=== PATIENT | male | born 1955 | race Caucasian/White ===

== ENCOUNTER → 2017-02-21 | Outpatient (CLI) | payer SELFPAY ==
[2017-02-21 14:34] LABS: BASOPHILS % (AUTO) 0 % (0-10); EOSINOPHILS # (AUTO) 0.2 10^3/uL (0.0-0.3); EOSINOPHILS % (AUTO) 2 % (0-10); HEMATOCRIT 33 % (40-54); HEMOGLOBIN 10.6 G/DL (13.3-17.7); LYMPHOCYTES # (AUTO) 1.1 X 10^3 (1.0-4.0); LYMPHOCYTES % (AUTO) 9 % (12-44); MEAN CORPUSCULAR HEMOGLOBIN 26 PG (25-34); MEAN CORPUSCULAR HGB CONC 32 G/DL (32-36); MEAN CORPUSCULAR VOLUME 79 FL (80-99); MEAN PLATELET VOLUME 9.1 FL (7.4-10.4); MONOCYTES # (AUTO) 0.8 X 10^3 (0.0-1.0); MONOCYTES % (AUTO) 6 % (0-12); NEUTROPHILS # (AUTO) 10.3 X 10^3 (1.8-7.8); NEUTROPHILS % (AUTO) 84 % (42-75); PLATELET COUNT 336 10^3/uL (130-400); RED BLOOD COUNT 4.14 10^6/uL (4.35-5.85); RED CELL DISTRIBUTION WIDTH 15.4 % (10.0-14.5); WHITE BLOOD COUNT 12.3 10^3/uL (4.3-11.0)
[2017-02-21 14:52] LABS: ALBUMIN 3.7 GM/DL (3.2-4.5); BILIRUBIN,TOTAL 0.3 MG/DL (0.1-1.0); CALCIUM 9.5 MG/DL (8.5-10.1); CREATININE SERUM 1.28 MG/DL (0.60-1.30); POTASSIUM 4.5 MMOL/L (3.6-5.0); TOTAL PROTEIN 7.3 GM/DL (6.4-8.2)
--- NOTE | 2017-02-21 16:29 | Diagnostic Imaging Report ---
PROCEDURE: CT chest with contrast only. TECHNIQUE: Multiple contiguous axial images were obtained through the chest after administration of intravenous contrast. INDICATION: Right upper lobe consolidation seen on an outside chest x-ray. Cough and shortness of breath. COMPARISON: None available. FINDINGS: LUNGS AND AIRWAY: A right upper lobe invasive lung mass is located along the mediastinum. This has maximal dimensions of 6.8 x 7.0 cm and directly invades the mediastinum and extends into the subcarinal space and along the right paratracheal location. This mass completely encases the right upper lobe bronchus. The anterior aspect of the mass probably abuts the pleura and may invade the chest wall at the level of the first rib. 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 There are multiple satellite metastases within the right lung which include a 1.5 cm nodule in the right middle lobe and a 2.9 x 2.4 cm nodule in the right lower lobe. No contralateral pulmonary nodule or mass. PLEURA: Trace right pleural effusion. No pneumothorax. HEART AND MEDIASTINUM: Right hilar lymphadenopathy measures 2.0 x 2.1 cm. No left hilar lymphadenopathy. No supraclavicular or axillary lymphadenopathy. There is a small to moderate-sized pericardial effusion present measuring 7 cm which could be malignant in nature. There are no features of cardiac tamponade. The heart is normal in size. A small hiatus hernia is present. Normal caliber thoracic aorta. UPPER ABDOMEN: There is a likely 2.5 x 1.8 cm left adrenal nodule seen on the most inferior image of the exam. MUSCULOSKELETAL: No focal blastic or lytic osseous lesion. IMPRESSION: 1. Large right upper lobe lung mass measuring up to 7 cm and directly invading the mediastinum and likely right chest wall. This is most compatible with a primary lung cancer. This mass encases and occludes the right upper lobe bronchus. 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 2. Multiple satellite metastatic nodules within the right middle and lower lobes are present. 3. Right hilar lymphadenopathy. No contralateral left hilar lymphadenopathy. 4. Probable metastatic focus in the left adrenal gland is seen on the most inferior image. A CT of the abdomen and pelvis will be required for full staging. 5. A small to moderate pericardial effusion is likely malignant in nature. Report was faxed to Mariama Walls APRN at 4:27 p.m., by feng (for ALEKSEY). Dictated by: Dictated on workstation # [id number]
== END ==
LOC: RAD 14:13
PROVIDERS: ATTEND Nurse Practitioner Family
DX: C34.31 Malignant neoplasm of lower lobe, right bronchus or lung (principal); C34.2 Malignant neoplasm of middle lobe, bronchus or lung; C80.0 Disseminated malignant neoplasm, unspecified; I31.3 Pericardial effusion (noninflammatory); R59.1 Generalized enlarged lymph nodes
CPT/HCPCS: 36415; 71260; 80053; 85025

== ENCOUNTER 2017-02-27 14:16 | Inpatient (IN) | payer SELFPAY ==
[~2017-02-27] VITALS: Ht 182.9 cm; Wt 93.2 kg
[2017-02-27 14:33] LABS: BASOPHILS % (AUTO) 0 % (0-10); EOSINOPHILS % (AUTO) 0 % (0-10); HEMATOCRIT 33 % (40-54); HEMOGLOBIN 10.7 G/DL (13.3-17.7); LYMPHOCYTES # (AUTO) 0.9 X 10^3 (1.0-4.0); LYMPHOCYTES % (AUTO) 5 % (12-44); MEAN CORPUSCULAR HEMOGLOBIN 25 PG (25-34); MEAN CORPUSCULAR HGB CONC 33 G/DL (32-36); MEAN CORPUSCULAR VOLUME 77 FL (80-99); MONOCYTES # (AUTO) 0.8 X 10^3 (0.0-1.0); MONOCYTES % (AUTO) 5 % (0-12); NEUTROPHILS # (AUTO) 15.3 X 10^3 (1.8-7.8); NEUTROPHILS % (AUTO) 90 % (42-75); PLATELET COUNT 335 10^3/uL (130-400); RED BLOOD COUNT 4.23 10^6/uL (4.35-5.85); RED CELL DISTRIBUTION WIDTH 15.8 % (10.0-14.5)
[2017-02-27 14:48] LABS: INR 1.5 (0.8-1.4); PROTHROMBIN TIME PATIENT 18.4 SEC (12.2-14.7)
[2017-02-27 14:59] LABS: BAND NEUTROPHILS 2 %; BASOPHILS % (MANUAL) 0 %; EOSINOPHILS % (MANUAL) 0 %; LYMPHOCYTES % (MANUAL) 3 %; MONOCYTES % (MANUAL) 3 %; NEUTROPHILS % (MANUAL) 86 %; NUCLEATED RED BLOOD CELLS 1; REACTIVE LYMPHOCYTES 6 %
[2017-02-27 15:00] LABS: ALANINE AMINOTRANSFERASE 757 U/L (0-55); ALBUMIN 3.6 GM/DL (3.2-4.5); ALKALINE PHOSPHATASE 275 U/L (40-136); AMYLASE 8 U/L (25-125); ANISOCYTOSIS MODERATE; BILIRUBIN,TOTAL 0.6 MG/DL (0.1-1.0); BUN/CREATININE RATIO 34; CALCIUM 9.6 MG/DL (8.5-10.1); CARBON DIOXIDE 23 MMOL/L (21-32); CHLORIDE 98 MMOL/L (98-107); CREATINE KINASE 75 U/L (30-200); CREATININE SERUM 1.52 MG/DL (0.60-1.30); ELLIPT/OVALOCYTES SLIGHT; GFR ESTIMATED 47; GLUCOSE 145 MG/DL (70-105); HYPOCHROMASIA SLIGHT; LIPASE 15 U/L (8-78); POIKILOCYTOSIS SLIGHT; POTASSIUM 5.2 MMOL/L (3.6-5.0); SODIUM 132 MMOL/L (135-145); TARGET CELLS SLIGHT; TOTAL PROTEIN 6.8 GM/DL (6.4-8.2); TOXIC GRANULATION/VACUOLAZATIO 1+
[2017-02-27 15:01] LABS: ACANTHOCYTES SLIGHT
[2017-02-27 15:09] LABS: CREATINE KINASE MB 5.1 NG/ML (<6.6)
--- NOTE | 2017-02-27 15:18 | Diagnostic Imaging Report ---
INDICATION: Lung mass. EXAMINATION: Portable chest at 3:07 PM. FINDINGS: There is a 7 cm density in the medial aspect of the right upper chest. There is a 2.5 cm density at the right lateral lung base. The left lung is clear. The heart size and pulmonary vascularity are normal. IMPRESSION: There are two round areas of consolidation in the right lung, suspicious for neoplasm. These are unchanged from a CT dated 02/21/2017. Dictated by: Dictated on workstation # [id number]
--- NOTE | 2017-02-27 18:55 | ED General ---
General Chief Complaint: Respiratory Problems Stated Complaint: NEW DX LUNG CANCER,HYPOXIA,LEG EDEMA Nursing Triage Note: PT CO OF SOA, AT REST PT AMBULATES TO ROOM 4 W SOA, PT HAS SWELLING NOTED IN EXT AND NEWLY DX MASS IN LUNG. FAMILY FROM OUT OF TOWN HAS COME IN AND BROUGHT PT TO ED FOR EVALUATION Nursing Sepsis Screen: No Definite Risk Source of Information: Patient, Family (SISTER) History of Present Illness Time Seen by Provider: 14:23 Initial Comments PT ARRIVES VIA POV FROM HOME C/O RIGHT LOWER CHEST PAIN OFF AND ON FOR A ? FEW DAYS ??--PT NOT SURE HOW LONG PT STATES "FEELS LIKE A HORSE KICKED ME" BUT DOES NOT HAVE ANY PAIN AT THIS TIME PAIN IS MOSTLY WITH EXERTION PT HAS HAD ONGOING AND INCREASING SHORTNESS OF BREATH, ESPECIALLY WITH EXERTION FOR THE LAST 6-7 MONTHS, BUT MUCH WORSE THE LAST 3 WEEKS,BUT DOES NOT FEEL SHORT OF BREATH AT THIS TIME HAS HAD INCREASED MINIMALLY PRODUCTIVE COUGH AND CONGESTION FOR THE LAST 2-3 WEEKS NO FEVER/SWEATS/CHILLS SEEN AT [facility] LAST WEEK AND OUTPATIENT CT SCAN WAS DONE02/21/17 , HAD FOLLOW UP VISIT ON SATURDAY WITH DR. ALVA ON Saturday02/25/17 AND WAS TOLD HE HAD A LUNG MASS. NO OTHER TESTS OR REFERRALS HAVE BEEN MADE. NO RX'S GIVEN. PT HAS HISTORY OF HEAD/NECK CANCER IN 2008 AND WAS TREATED WITH RADICAL NECK DISSECTION, CHEMO AND RADIATION. PT QUIT SMOKING IN 2008. PT HAS NOT BEEN DX WITH COPD AND DOES NOT WEAR HOME O2 OR USE INHALERS/ NEBULIZERS PCP: [facility] Allergies and Home Medications Allergies Coded Allergies: No Known Drug Allergies (Unverified , 02/27/17) Home Medications No Active Prescriptions or Reported Meds Past Vfaesuv-Nlmdfz-Fkimtk Hx Patient Social History Alcohol Use: Denies Use Recreational Drug Use: No Smoking Status: Former Smoker Recent Foreign Travel: No Contact w/Someone Who Travel: No Recent Infectious Disease Expo: No Recent Hopitalizations: No Physical Abuse: No Sexual Abuse: No Seasonal Allergies Seasonal Allergies: No Surgeries History of Surgeries: Yes (THYROID CA, L MOD RAD THROAT SURGERY, TEETH PULLED) Respiratory History of Respiratory Disorde: No Cardiovascular History of Cardiac Disorders: No Neurological History of Neurological Disord: No Genitourinary History of Genitourinary Disor: No Gastrointestinal History of Gastrointestinal Di: No Musculoskeletal History of Musculoskeletal Dis: No Endocrine History of Endocrine Disorders: No HEENT History of HEENT Disorders: No Cancer History of Cancer: Yes (THROAT CA) Type of Tx Receive: Chemotherapy, Radiation, Surgical Intervention Psychosocial History of Psychiatric Problem: No Suicide Risk Score: 0 Integumentary History of Skin or Integumenta: No Blood Transfusions History of Blood Disorders: No Adverse Reaction to a Blood Tr: No Physical Exam Vital Signs Vital Sign - Last 12Hours 02/27/17 14:16 Temp 99.1 Pulse 83 Resp 18 B/P (MAP) 127/95 (106) Pulse Ox 95 O2 Delivery Nasal Cannula O2 Flow Rate 2.00 Capillary Refill : Less Than 3 Seconds Progress/Results/Core Measures Suspected Sepsis Recent Fever Within 48 Hours: No Infection Criteria Present: None New/Unexplained Altered Menta: No Sepsis Screen: No Definite Risk Sepsis Diagnosis: SIRS Temperature:99.1 Pulse: 83 Respiratory Rate: 18 Laboratory Tests 02/27/17 14:25: White Blood Count 17.0H 02/28/17 04:55: White Blood Count 16.0H Blood Pressure 127 /95 Mean: 106 Laboratory Tests 02/27/17 14:25: Creatinine 1.52H, INR Comment 1.5H, Platelet Count 335, Total Bilirubin 0.6 02/28/17 04:55: Creatinine 1.38H, Platelet Count 290, Total Bilirubin 0.6 Results/Orders Lab Results Laboratory Tests Test 02/27/17 14:25 02/28/17 04:55 Range/Units White Blood Count 17.0 H 16.0 H 4.3-11.0 10^3/uL Red Blood Count 4.23 L 4.15 L 4.35-5.85 10^6/uL Hemoglobin 10.7 L 10.6 L 13.3-17.7 G/DL Hematocrit 33 L 32 L 40-54 % Mean Corpuscular Volume 77 L 77 L 80-99 FL Mean Corpuscular Hemoglobin 25 26 25-34 PG Mean Corpuscular Hemoglobin Concent 33 33 32-36 G/DL Red Cell Distribution Width 15.8 H 15.8 H 10.0-14.5 % Platelet Count 335 290 130-400 10^3/uL Mean Platelet Volume 10.0 10.1 7.4-10.4 FL Neutrophils (%) (Auto) 90 H 85 H 42-75 % Lymphocytes (%) (Auto) 5 L 9 L 12-44 % Monocytes (%) (Auto) 5 6 0-12 % Eosinophils (%) (Auto) 0 0 0-10 % Basophils (%) (Auto) 0 0 0-10 % Neutrophils # (Auto) 15.3 H 13.6 H 1.8-7.8 X 10^3 Lymphocytes # (Auto) 0.9 L 1.4 1.0-4.0 X 10^3 Monocytes # (Auto) 0.8 1.0 0.0-1.0 X 10^3 Eosinophils # (Auto) 0.0 0.1 0.0-0.3 10^3/uL Basophils # (Auto) 0.0 0.0 0.0-0.1 10^3/uL Neutrophils % (Manual) 86 % Lymphocytes % (Manual) 3 % Monocytes % (Manual) 3 % Eosinophils % (Manual) 0 % Basophils % (Manual) 0 % Metamyelocytes % % Band Neutrophils 2 % Nucleated Red Blood Cells 1 Reactive Lymphocytes 6 % Toxic Granulation 1+ Hypochromasia SLIGHT Poikilocytosis SLIGHT Anisocytosis MODERATE Target Cells SLIGHT Elliptocytes SLIGHT Acanthocytes SLIGHT Prothrombin Time 18.4 H 12.2-14.7 SEC INR Comment 1.5 H 0.8-1.4 Activated Partial Thromboplast Time 35 24-35 SEC Sodium Level 132 L 132 L 135-145 MMOL/L Potassium Level 5.2 H 5.3 H 3.6-5.0 MMOL/L Chloride Level 98 100 98-107 MMOL/L Carbon Dioxide Level 23 19 L 21-32 MMOL/L Anion Gap 11 13 5-14 MMOL/L Blood Urea Nitrogen 52 H 56 H 7-18 MG/DL Creatinine 1.52 H 1.38 H 0.60-1.30 MG/DL Estimat Glomerular Filtration Rate 47 52 BUN/Creatinine Ratio 34 41 Glucose Level 145 H 109 H 70-105 MG/DL Calcium Level 9.6 9.7 8.5-10.1 MG/DL Total Bilirubin 0.6 0.6 0.1-1.0 MG/DL Aspartate Amino Transf (AST/SGOT) 455 H 1088 #H 5-34 U/L Alanine Aminotransferase (ALT/SGPT) 757 H 1118 #H 0-55 U/L Alkaline Phosphatase 275 H 306 H 40-136 U/L Total Creatine Kinase 75 30-200 U/L Creatine Kinase MB 5.1 <6.6 NG/ML Troponin I < 0.30 <0.30 NG/ML B-Type Natriuretic Peptide 73.0 <100.0 PG/ML Total Protein 6.8 6.6 6.4-8.2 GM/DL Albumin 3.6 3.4 3.2-4.5 GM/DL Amylase Level 8 L 25-125 U/L Lipase 15 8-78 U/L Magnesium Level 2.1 1.8-2.4 MG/DL My Orders Orders - PATTI HERRERA DO Amylase (02/27/17 14:23) Cbc With Automated Diff (02/27/17 14:23) Comprehensive Metabolic Panel (02/27/17 14:23) Creatine Kinase (02/27/17 14:23) Creatine Kinase Mb (02/27/17 14:23) Lipase (02/27/17 14:23) Partial Thromboplastin Time (02/27/17 14:23) Protime With Inr (02/27/17 14:23) Troponin I (02/27/17 14:23) Chest 1 View, Ap/Pa Only (02/27/17 14:23) O2 (02/27/17 14:23) Ekg Tracing (02/27/17 14:23) BNP (02/27/17 14:23) Monitor-Rhythm Ecg Trace Only (02/27/17 14:23) Manual Differential (02/27/17 14:25) Heart Healthy (02/28/17 Breakfast) Heart Healthy (02/27/17 Dinner) Vital Signs/I&O Vital Sign - Last 12Hours 02/28/17 02/28/17 02/28/17 02/28/17 09:56 10:00 11:00 12:00 Temp 96.7 Pulse 87 90 90 Resp 30 31 28 B/P (MAP) 120/100 (107) 115/80 (92) 133/91 (105) Pulse Ox 96 98 97 O2 Delivery Nasal Cannula Nasal Cannula Nasal Cannula O2 Flow Rate 2.00 2.00 2.00 02/28/17 02/28/17 02/28/17 02/28/17 12:15 12:15 13:00 13:00 Temp 97.0 Pulse 77 77 Resp 13 B/P (MAP) 115/86 (96) Pulse Ox 95 O2 Delivery Nasal Cannula Nasal Cannula O2 Flow Rate 2.00 2.00 02/28/17 02/28/17 02/28/17 02/28/17 14:00 15:00 15:05 16:00 Pulse 77 80 80 Resp 21 31 31 B/P (MAP) 106/77 (87) 107/79 (88) 113/94 (100) Pulse Ox 98 97 96 O2 Delivery Nasal Cannula Nasal Cannula Nasal Cannula Nasal Cannula O2 Flow Rate 2.00 2.00 2.00 2.00 02/28/17 02/28/17 02/28/17 02/28/17 16:20 16:20 17:00 18:00 Temp 97.0 Pulse 82 85 Resp 32 32 B/P (MAP) 121/102 (108) 114/41 (65) Pulse Ox 96 97 O2 Delivery Nasal Cannula Nasal Cannula Nasal Cannula O2 Flow Rate 2.00 2.00 2.00 02/28/17 02/28/17 02/28/17 02/28/17 19:00 19:00 20:00 20:46 Pulse 79 79 81 Resp 24 26 B/P (MAP) 115/96 (102) 127/95 (106) Pulse Ox 99 98 O2 Delivery Nasal Cannula Nasal Cannula Nasal Cannula O2 Flow Rate 2.00 2.00 2.00 Capillary Refill : Less Than 3 Seconds Blood Pressure Mean: 106 Progress Note : Progress Note PT HAD NO SYMPTOMS DURING ER STAY, WHILE RESTING ON ER CART AND O2 AT 2L/NC O2 SATS REMAINED IN MID 90'S. NO DETERIORATION IN PT'S CONDITION DURING ER STAY Departure Communication (Admissions) Progress Notes 1545--SPOKE WITH DR. ALEGRIA, ACCEPTS PT FOR ADMIT. WILL CONSULT DR. CHERRY AND ONCOLOGY 1547--MESSAGE LEFT ON DR. CHERRY'S CELL PHONE 1550--SPOKE WITH DR. CHERRY AND INFORMED OF CONSULT. 1558--PAGING DR. TOMLINSON FOR ONCOLOGY CONSULT. NO RETURN CALL Impression Impression: Primary Impression: NEW DX METASTATIC LUNG CANCER Additional Impressions: Chest wall pain Hypoxia Dyspnea on exertion Bilateral leg edema Disposition: ADMITTED INPATIENT Condition: Stable Admissions Decision to Admit Reason: Admit from ER (General) Decision to Admit/Date: Feb 27, 2017 Time/Decision to Admit Time: 15:45 Departure-Patient Inst. Referrals: [facility] (PCP/Family) Primary Care Physician Scripts No Active Prescriptions or Reported Meds PATTI HERRERA DO Feb 27, 2017 18:55
[2017-02-27 20:09] VITALS: BP 122/94
[2017-02-27] MEDS ORDERED: CATHETER FLUSH 10 ML SYR IV PRN (20:15)
[2017-02-27 21:00] VITALS: BP 121/84
[2017-02-27] MEDS: CATHETER FLUSH 10 ML SYR IV SCH (21:33)
[2017-02-27 22:00] VITALS: BP 125/95
[2017-02-27 23:00] VITALS: BP 141/101
[2017-02-28] VITALS (20 sets, daily range): BP systolic 94–136; BP diastolic 41–102
[2017-02-28 05:18] LABS: BASOPHILS % (AUTO) 0 % (0-10); EOSINOPHILS # (AUTO) 0.1 10^3/uL (0.0-0.3); EOSINOPHILS % (AUTO) 0 % (0-10); HEMATOCRIT 32 % (40-54); HEMOGLOBIN 10.6 G/DL (13.3-17.7); LYMPHOCYTES # (AUTO) 1.4 X 10^3 (1.0-4.0); LYMPHOCYTES % (AUTO) 9 % (12-44); MEAN CORPUSCULAR HEMOGLOBIN 26 PG (25-34); MEAN CORPUSCULAR HGB CONC 33 G/DL (32-36); MEAN CORPUSCULAR VOLUME 77 FL (80-99); MEAN PLATELET VOLUME 10.1 FL (7.4-10.4); MONOCYTES % (AUTO) 6 % (0-12); NEUTROPHILS # (AUTO) 13.6 X 10^3 (1.8-7.8); NEUTROPHILS % (AUTO) 85 % (42-75); PLATELET COUNT 290 10^3/uL (130-400); RED BLOOD COUNT 4.15 10^6/uL (4.35-5.85); RED CELL DISTRIBUTION WIDTH 15.8 % (10.0-14.5)
[2017-02-28 05:56] LABS: ALBUMIN 3.4 GM/DL (3.2-4.5); BILIRUBIN,TOTAL 0.6 MG/DL (0.1-1.0); CALCIUM 9.7 MG/DL (8.5-10.1); CREATININE SERUM 1.38 MG/DL (0.60-1.30); POTASSIUM 5.3 MMOL/L (3.6-5.0); TOTAL PROTEIN 6.6 GM/DL (6.4-8.2)
[2017-02-28] MEDS: CATHETER FLUSH 10 ML SYR IV SCH ×3 (06:07→21:17)
[2017-02-28] MEDS ORDERED: INFLUENZA TRIvalent 2017-2018 0.5 ML/45 MCG SYR IM ONE (07:00)
--- NOTE | 2017-02-28 07:44 | Pulmonary Consultation ---
History of Present Illness History of Present Illness Date of Consultation 02/28/17 07:39 Time Seen by Provider: 07:55 Date of Admission Allergies and Home Medications Allergies Coded Allergies: No Known Drug Allergies (Unverified , 02/27/17) Past Witqgiy-Qzqqqy-Syibpy Hx Patient Social History Alcohol Use: Rarely Uses Number of Drinks Today: 0 Recreational Drug Use: No Smoking Status: Former Smoker Former Smoker, Quit: Feb 28, 2008 Recent Foreign Travel: No Contact w/Someone Who Travel: No Recent Infectious Disease Expo: No Recent Hopitalizations: No Physical Abuse: No Sexual Abuse: No Seasonal Allergies Seasonal Allergies: No Surgeries History of Surgeries: Yes (THYROID CA, L MOD RAD THROAT SURGERY, TEETH PULLED) Respiratory History of Respiratory Disorde: No Currently Using CPAP: No Currently Using BIPAP: No Cardiovascular History of Cardiac Disorders: No Neurological History of Neurological Disord: Yes Genitourinary History of Genitourinary Disor: Yes (DIFFICULTY URINATING AT TIMES) Gastrointestinal History of Gastrointestinal Di: Yes (PAST HISTORY OF CHRONIC STOMACH PAIN (NO DX)) Musculoskeletal History of Musculoskeletal Dis: No Endocrine History of Endocrine Disorders: No HEENT History of HEENT Disorders: No Cancer History of Cancer: Yes (THROAT CA) Did You Recieve Any Treatments: Yes Type of Tx Receive: Chemotherapy, Radiation, Surgical Intervention Psychosocial History of Psychiatric Problem: Yes ("PSYCHOTIC FITS" OCCASSIONALLY IS "OUT OF CONTROL") Suicide Risk Score: 0 Integumentary History of Skin or Integumenta: No Blood Transfusions History of Blood Disorders: No Adverse Reaction to a Blood Tr: No Family Medical History Family Medial History: Diabetes mellitus 19 MOTHER FH: prostate cancer 19 FATHER Hypertension 19 MOTHER Review of Systems Time Seen by Provider: 07:54 Constitutional: Sweats, Weakness, Malaise, No: Fever, Chills, Other Eyes: No: Pain, Vision change, Conjunctivae inflammation, Eyelid inflammation, Other, Redness ENT: No: Ear pain, Ear discharge, Nose pain, Nose discharge, Nose congestion, Mouth pain, Mouth swelling, Throat pain, Throat swelling, Other Respiratory: Shortness of breath, SOB with excertion, Wheezing, No: Hemoptysis Cardiovascular: Palpitations, Paroxysmal Noc. Dyspnea, Edema, Lt Headedness, No : Chest Pain, Orthopnea, Other Neurological: Weakness, Numbness Exam Exam Vital Signs Date Time Temp Pulse Resp B/P (MAP) Pulse Ox O2 Delivery O2 Flow Rate FiO2 02/28/17 06:00 77 23 94/69 (77) 100 02/28/17 05:00 82 14 99 02/28/17 04:00 97.1 02/28/17 04:00 82 22 100/82 (88) 99 Nasal Cannula 2.00 02/28/17 04:00 97 Nasal Cannula 2.00 02/28/17 03:00 76 20 99/76 (84) 99 Nasal Cannula 2.00 02/28/17 02:00 85 28 115/82 (93) 98 Nasal Cannula 2.00 02/28/17 01:00 82 02/28/17 01:00 82 25 136/87 (103) 98 Nasal Cannula 2.00 02/28/17 00:00 97.5 02/28/17 00:00 98 Nasal Cannula 2.00 02/28/17 00:00 81 26 129/78 (95) 100 Nasal Cannula 2.00 02/27/17 23:00 87 24 141/101 (114) 99 Nasal Cannula 2.00 02/27/17 22:00 84 21 125/95 (105) 99 Nasal Cannula 2.00 02/27/17 21:00 98 Nasal Cannula 2.00 02/27/17 21:00 85 31 121/84 (96) 98 Nasal Cannula 2.00 02/27/17 20:39 88 02/27/17 20:09 98.1 95 20 122/94 (103) 99 Nasal Cannula 2.00 02/27/17 19:46 99 Nasal Cannula 2.00 02/27/17 19:15 78 18 95 Nasal Cannula 2.00 02/27/17 14:16 99.1 83 18 127/95 (106) 96 02/27/17 14:16 95 Nasal Cannula 2.00 I & O 02/28/17 07:00 Intake Total 450 ml Output Total 900 ml Balance -450 ml General Appearance: Anxious, Mild Distress HEENT: TMs Normal, Normal ENT Inspection Neck: Non Tender, Supple, JVD Respiratory: No Accessory Muscle Use, No Respiratory Distress, Decreased Breath Sounds Capillary Refill: Less Than 3 Seconds Gastrointestinal: non tender, soft, no organomegaly, no pulsatile mass Neurologic/Psychiatric: Alert, Oriented x3 Skin: Normal Color, Cool, Pallor Lymphatic: No Adenopathy Results Lab Laboratory Tests 02/27/17 14:25 02/28/17 04:55 Assessment/Plan Assessment/Plan RUL large lung mass -Will plan for bronchoscopy tomorrow morning Pneumonia -start Zosyn -IVF 100cc/hr COPDAE with hypoxia -oxygen -Solumedrol -SVNs Pericardial effusion - probably malignant -check echocardiogram Dehydration -start IVF Metabolic acidosis -IVF and monitor Elevated LFTs -Check US RUQ -D/C doxy -Monitor close -Pt has only been taking doxy at home. no pain meds and no Tylenol RADHA -IVF Will leave in as ICU step down and plan for bronchoscopy in AM. Pt will probably need home oxygen upon discharge. 255 Clinical Quality Measures DVT/VTE Risk/Contraindication: Risk Factor Score Per Nursin RFS Level Per Nursing on Admit: 3=High NELLIE CHERRY DO Feb 28, 2017 07:44
[2017-02-28] MEDS ORDERED: PIPERACILLIN/TAZOBACTAM 4.5 GM/NS 100 ML IV NR ×2 (08:00)
[2017-02-28] MEDS ORDERED: RT-ALBUTEROL/IPRATROPIUM 3 ML (DUONEB) VIAL INH PRN (08:00)
[2017-02-28] MEDS: RT-ALBUTEROL/IPRATROPIUM 3 ML (DUONEB) VIAL INH SCH ×4 (09:00→20:46)
--- NOTE | 2017-02-28 09:14 | Pulmonary Progress Note ---
Standard Progress Note Progress Notes Time Seen by Provider: 08:48 Called to patients room by psychology technician secondary to finding of a large pericardial effusion causing tamponade. SBP has been stable around 114/90. I discussed patients case with cardiology and patients sister who is a CHAIR MAKER. Family would like pt to be transferred to [facility] for CV surgery. Assessment & Plan Large pericardial effusion -Will attempt to arrange transfer to [facility] RUL large lung mass -Cancel bronch for now Pneumonia -start Zosyn -IVF 100cc/hr COPDAE with hypoxia -oxygen -Solumedrol -SVNs Pericardial large effusion - probably malignant Dehydration -start IVF Metabolic acidosis -IVF and monitor Elevated LFTs -Check US RUQ -D/C doxy -Monitor close -Pt has only been taking doxy at home. no pain meds and no Tylenol RADHA -IVF I have attempted to arrange transfer to [facility] and [place] however both hospitals are on diversion. [facility] called and they are suppose to call me back when a finance business manager is available. I called pt's sister back and updated her on current situation. I have also discussed with Dr. Michael who wants patient transferred. 120min ICU time since seeing patient this morning. spent with patient and medical team trying to transfer patient. NELLIE CHERRY DO Feb 28, 2017 09:14
[2017-02-28] MEDS: methylPREDNISolone 40 MG/ML (Solu-MEDROL) VIAL IV SCH ×3 (09:43→20:20)
[2017-02-28] MEDS: NS IV 1000 ML 1,000 ML IV SCH ×3 (09:46→21:17)
--- NOTE | 2017-02-28 10:46 | Diagnostic Imaging Report ---
INDICATION: New diagnosis of lung malignancy. TECHNIQUE: Multiple real-time ramirez scale sonographic images of the abdomen. CORRELATION STUDY: None FINDINGS: LIVER: Slight heterogeneous echotexture throughout the liver parenchyma. No definitive focal lesion. Very questionable nodular contour. Liver is enlarged at 21 cm. Main portal vein patent. GALLBLADDER: There is marked abnormal gallbladder wall thickening and edema measuring at least 9 mm. No definitive shadowing gallstones. COMMON BILE DUCT: Not well visualized, but no suggestion for significant ductal dilatation. PANCREAS: Limited in visualization. The visualized portions appearing unremarkable. SPLEEN: Unremarkable. ABDOMINAL AORTA: Proximal and mid aspect not visualized. Distally at 2 cm. INFERIOR VENA CAVA: Limited in visualization. RIGHT KIDNEY: 11.6 cm. Unremarkable. LEFT KIDNEY: 12.3 cm. Unremarkable. OTHER: There is noted upper abdominal ascites particularly around the spleen. Additionally, there is presence of bilateral pleural effusions. IMPRESSION: 1. Enlarged liver with heterogeneous and somewhat nodular echotexture. The possibility of underlying liver disease not excluded. 2. Prominent abnormal gallbladder wall thickening and edema without findings to suggest gallstone. This finding is nonspecific. Perhaps attributed to underlying liver disease. Changes of chronic acalculous cholecystitis is not excluded. Biliary tree cannot be visualized. 3. Presence of upper abdominal ascites. 4. Bilateral pleural effusions. Dictated by: Dictated on workstation # [id number]
[2017-02-28] MEDS ORDERED: TAZOBACTAM IV SCH ×2 (14:00)
[2017-02-28] MEDS ORDERED: DEXTROSE IV SCH ×2 (14:00)
[2017-02-28] MEDS ORDERED: PIPERACILLIN IV SCH ×2 (14:00)
--- NOTE | 2017-02-28 14:06 | History & Physicial (CHS) ---
HPI History of Present Illness: 62 yo M with recent lung Ca Dx on Saturday that presented to ER with increasing shortness of breath and exercise intolerance. States that he has been more short of breath for the last 2 weeks. + Chills and night sweats. + weight loss. H/o Head and neck cancer and completed treatment in 2005. Has not smoked since then. Source: patient, RN/MD, old records Exam Limitations: no limitations Date seen by provider: Feb 28, 2017 Time Seen by Provider: 09:45 Attending Physician Angelique Alegria MD [place] [place] Consult Date of Admission Feb 27, 2017 at 15:45 Home Medications Home Medications Reviewed patient Home Medication Reconciliation Form Allergies Coded Allergies: No Known Drug Allergies (Unverified , 02/27/17) HVR-Qoeczp-Fomgdd Hx Patient Social History Alcohol Use: Rarely Uses Recreational Drug Use: No Smoking Status: Former Smoker Recent Foreign Travel: No Contact w/other who traveled: No Recent Hopitalizations: No Recent Infectious Disease Expo: No Physical Abuse Screen: No Sexual Abuse: No Past Medical History Head and Neck Cancer s/p treatment Family Medical History Family History: Diabetes mellitus 19 MOTHER FH: prostate cancer 19 FATHER Hypertension 19 MOTHER Review of Systems (CHC) Constitutional: chills, No fever, weakness, weight loss EENTM: no symptoms reported Respiratory: cough, dyspnea on exertion, short of breath Cardiovascular: No chest pain, edema, No palpitations Gastrointestinal: no symptoms reported, No abdominal pain, No constipation, No diarrhea, No nausea, No vomiting Genitourinary: no symptoms reported, No dysuria, No frequency, No hematuria Musculoskeletal: back pain Skin: No lesions, No rash Psychiatric/Neurological: Anxiety Reviewed Test Results Reviewed Test Results Lab Laboratory Tests Test 02/28/17 04:55 Range/Units White Blood Count 16.0 H 4.3-11.0 10^3/uL Red Blood Count 4.15 L 4.35-5.85 10^6/uL Hemoglobin 10.6 L 13.3-17.7 G/DL Hematocrit 32 L 40-54 % Mean Corpuscular Volume 77 L 80-99 FL Mean Corpuscular Hemoglobin 26 25-34 PG Mean Corpuscular Hemoglobin Concent 33 32-36 G/DL Red Cell Distribution Width 15.8 H 10.0-14.5 % Platelet Count 290 130-400 10^3/uL Mean Platelet Volume 10.1 7.4-10.4 FL Neutrophils (%) (Auto) 85 H 42-75 % Lymphocytes (%) (Auto) 9 L 12-44 % Monocytes (%) (Auto) 6 0-12 % Eosinophils (%) (Auto) 0 0-10 % Basophils (%) (Auto) 0 0-10 % Neutrophils # (Auto) 13.6 H 1.8-7.8 X 10^3 Lymphocytes # (Auto) 1.4 1.0-4.0 X 10^3 Monocytes # (Auto) 1.0 0.0-1.0 X 10^3 Eosinophils # (Auto) 0.1 0.0-0.3 10^3/uL Basophils # (Auto) 0.0 0.0-0.1 10^3/uL Sodium Level 132 L 135-145 MMOL/L Potassium Level 5.3 H 3.6-5.0 MMOL/L Chloride Level 100 98-107 MMOL/L Carbon Dioxide Level 19 L 21-32 MMOL/L Anion Gap 13 5-14 MMOL/L Blood Urea Nitrogen 56 H 7-18 MG/DL Creatinine 1.38 H 0.60-1.30 MG/DL Estimat Glomerular Filtration Rate 52 BUN/Creatinine Ratio 41 Glucose Level 109 H 70-105 MG/DL Calcium Level 9.7 8.5-10.1 MG/DL Magnesium Level 2.1 1.8-2.4 MG/DL Total Bilirubin 0.6 0.1-1.0 MG/DL Aspartate Amino Transf (AST/SGOT) 1088 #H 5-34 U/L Alanine Aminotransferase (ALT/SGPT) 1118 #H 0-55 U/L Alkaline Phosphatase 306 H 40-136 U/L Total Protein 6.6 6.4-8.2 GM/DL Albumin 3.4 3.2-4.5 GM/DL Radiology Date of Exam: 02/27/17 CHEST 1 VIEW, AP/PA ONLY INDICATION: Lung mass. EXAMINATION: Portable chest at 3:07 PM. FINDINGS: There is a 7 cm density in the medial aspect of the right upper chest. There is a 2.5 cm density at the right lateral lung base. The left lung is clear. The heart size and pulmonary vascularity are normal. IMPRESSION: There are two round areas of consolidation in the right lung, suspicious for neoplasm. These are unchanged from a CT dated 02/21/2017. Physical Exam-([facility]) Physical Exam Vital Signs VS - Last 72 Hours, by Label 02/27/17 02/27/17 02/27/17 02/27/17 14:16 14:16 19:15 19:46 Temp 99.1 Pulse 83 78 Resp 18 18 B/P (MAP) 127/95 (106) Pulse Ox 95 96 95 99 O2 Delivery Nasal Cannula Nasal Cannula Nasal Cannula O2 Flow Rate 2.00 2.00 2.00 02/27/17 02/27/17 02/27/17 02/27/17 20:09 20:39 21:00 21:00 Temp 98.1 Pulse 95 88 85 Resp 20 31 B/P (MAP) 122/94 (103) 121/84 (96) Pulse Ox 99 98 98 O2 Delivery Nasal Cannula Nasal Cannula Nasal Cannula O2 Flow Rate 2.00 2.00 2.00 02/27/17 02/27/17 02/28/17 02/28/17 22:00 23:00 00:00 00:00 Pulse 84 87 81 Resp 21 24 26 B/P (MAP) 125/95 (105) 141/101 (114) 129/78 (95) Pulse Ox 99 99 100 98 O2 Delivery Nasal Cannula Nasal Cannula Nasal Cannula Nasal Cannula O2 Flow Rate 2.00 2.00 2.00 2.00 02/28/17 02/28/17 02/28/17 02/28/17 00:00 01:00 01:00 02:00 Temp 97.5 Pulse 82 82 85 Resp 25 28 B/P (MAP) 136/87 (103) 115/82 (93) Pulse Ox 98 98 O2 Delivery Nasal Cannula Nasal Cannula O2 Flow Rate 2.00 2.00 02/28/17 02/28/17 02/28/17 02/28/17 03:00 04:00 04:00 04:00 Temp 97.1 Pulse 76 82 Resp 20 22 B/P (MAP) 99/76 (84) 100/82 (88) Pulse Ox 99 97 99 O2 Delivery Nasal Cannula Nasal Cannula Nasal Cannula O2 Flow Rate 2.00 2.00 2.00 02/28/17 02/28/17 02/28/17 02/28/17 05:00 06:00 07:00 07:00 Pulse 82 77 84 84 Resp 14 23 42 B/P (MAP) 94/69 (77) 100/86 (91) Pulse Ox 99 100 97 O2 Delivery Nasal Cannula O2 Flow Rate 2.00 02/28/17 02/28/17 02/28/17 02/28/17 08:00 09:00 09:00 09:00 Pulse 81 82 Resp 27 24 B/P (MAP) 114/90 (98) 112/75 (87) Pulse Ox 96 100 96 96 O2 Delivery Nasal Cannula Nasal Cannula Nasal Cannula Nasal Cannula O2 Flow Rate 2.00 2.00 2.00 2.00 02/28/17 02/28/17 02/28/17 02/28/17 09:56 10:00 11:00 12:00 Temp 96.7 Pulse 87 90 90 Resp 30 31 28 B/P (MAP) 120/100 (107) 115/80 (92) 133/91 (105) Pulse Ox 96 98 97 O2 Delivery Nasal Cannula Nasal Cannula Nasal Cannula O2 Flow Rate 2.00 2.00 2.00 02/28/17 02/28/17 02/28/17 02/28/17 12:15 12:15 13:00 15:05 Temp 97.0 Pulse 77 O2 Delivery Nasal Cannula Nasal Cannula O2 Flow Rate 2.00 2.00 02/28/17 02/28/17 16:20 16:20 Temp 97.0 O2 Delivery Nasal Cannula O2 Flow Rate 2.00 Capillary Refill : Less Than 3 Seconds General Appearance: WD/WN, no apparent distress HEENT: PERRL/EOMI Neck: non-tender, supple Respiratory: no respiratory distress, no accessory muscle use, rales, rhonchi Cardiovascular: normal peripheral pulses, regular rate, rhythm, no murmur Gastrointestinal: normal bowel sounds, non tender, soft Extremities: no calf tenderness, normal capillary refill, pedal edema (3+ equal bilaterally) Neurologic/Psychiatric: caddy packer II-XII nml as tested, no motor/sensory deficits, alert, normal mood/affect, oriented x 3 Skin: normal color, warm/dry Lymphatic: no adenopathy Clinical Quality Measures DVT/VTE Risk/Contraindication: Risk Factor Score Per Nursin RFS Level Per Nursing on Admit: 3=High Copy Copies To 1: HOUSTON ALVA MD Assessment/Plan Assessment/Plan Plan 62 yo M with recent CXR with concerns for lung cancer that presented to ER with increasing shortness of breath Acute Respiratory distress - Echo showed pericardial effusion with concerns for tamponade, transfer in progress - Continue oxygen to maintain O2 >91 - Duoneb and albuterol PRN Pericardial Effusion with Tamponade - Dr Tang and Dr Muller notified - Patient to be transferred for CV surgery RUL Lung Mass: Concerning for primary Lung malignancy - Needs bronchoscopy for tissue sample Acute Hepatic Failure - Abdominal US pending Acute Renal Failure - Gentle hydration, continue to monitor Bilateral LE edema - Normal BNP, likely 2/2 tamponade - Elevation FEN: NPO Dispo: Transfer to [facility] for CV surgery ANGELIQUE ALEGRIA MD Feb 28, 2017 14:06
--- NOTE | 2017-02-28 17:50 | Discharge Summary ---
Diagnosis/Chief Complaint Date of Admission Feb 27, 2017 at 15:45 Date of Discharge Chief Complaint/HPI Chief Complaint/HPI 62 yo M with recent lung Ca Dx on Saturday that presented to ER with increasing shortness of breath and exercise intolerance. States that he has been more short of breath for the last 2 weeks. + Chills and night sweats. + weight loss. H/o Head and neck cancer and completed treatment in 2005. Has not smoked since then. Discharge Summary-Simple/Stand Consultations Discharge Physical Examination Allergies: Coded Allergies: No Known Drug Allergies (Unverified , 02/27/17) Vitals & I&Os Vital Sign - Last 12Hours Date Time Temp Pulse Resp B/P (MAP) Pulse Ox O2 Delivery O2 Flow Rate FiO2 02/28/17 16:20 Nasal Cannula 2.00 02/28/17 16:20 97.0 02/28/17 13:00 77 02/28/17 12:00 28 133/91 (105) 97 Hospital Course See final discharge diagnosis. Radiology Reviewed Date of Exam: 02/27/17 CHEST 1 VIEW, AP/PA ONLY INDICATION: Lung mass. EXAMINATION: Portable chest at 3:07 PM. FINDINGS: There is a 7 cm density in the medial aspect of the right upper chest. There is a 2.5 cm density at the right lateral lung base. The left lung is clear. The heart size and pulmonary vascularity are normal. IMPRESSION: There are two round areas of consolidation in the right lung, suspicious for neoplasm. These are unchanged from a CT dated 02/21/2017. Discharge Instructions to patient/family Please see electronic discharge instructions given to patient. Discharge Medications Reviewed and agree with Discharge Medication list on patient's Discharge Instruction sheet Clinical Quality Measures DVT/VTE Risk/Contraindication: Risk Factor Score Per Nursin RFS Level Per Nursing on Admit: 3=High ANGELIQUE ALEGRIA MD Feb 28, 2017 17:50
== END 2017-02-28 23:33 | disposition short-term general hospital (02) | DRG 180 ==
LOC: EDUNIT# 14:16 → ER 14:19 → ICU 15:45
PROVIDERS: ADMIT Family Medicine; ATTEND Family Medicine
DX: C34.91 Malignant neoplasm of unspecified part of right bronchus or lung (principal); J18.9 Pneumonia, unspecified organism; I31.3 Pericardial effusion (noninflammatory); N17.9 Acute kidney failure, unspecified; J44.1 Chronic obstructive pulmonary disease with (acute) exacerbation; E87.2 Acidosis; I31.4 Cardiac tamponade; J44.0 Chronic obstructive pulmonary disease with (acute) lower respiratory infection; R06.03 Acute respiratory distress; R91.8 Other nonspecific abnormal finding of lung field; K72.90 Hepatic failure, unspecified without coma; R60.0 Localized edema; Z87.891 Personal history of nicotine dependence; Z85.89 Personal history of malignant neoplasm of other organs and systems; R09.02 Hypoxemia; E86.0 Dehydration; R74.8 Abnormal levels of other serum enzymes
CPT/HCPCS: 36415; 71045; 76700; 80053; 82150; 82550; 82553; 83690; 83735; 83880; 84484; 85007; 85025; 85027; 85610; 85730; 93005; 93041; 93306; 94640

== ENCOUNTER 2018-06-16 17:22 | Observation (INO) | payer MEDICAID ==
[~2018-06-16] VITALS: Ht 182.9 cm; Wt 95.3 kg
--- OUTSIDE RECORDS SUMMARY | 2018-06-16 17:26 | XMS REPORT ---
Author Author HOUSTON ALVA Organization [facility] Address [address] [place] [address] Care Team Providers Care Script Reader Name Role Phone HOUSTON ALVA Unavailable PROBLEMS Type Condition ICD9-CM Code [id number] Code Onset Dates Condition Status SNOMED Code Problem Lung mass R91.8 Active [id number] ALLERGIES No Known Allergies ENCOUNTERS Encounter Location Date Diagnosis [place] [address] [id number] Feb, [facility] [address] [address] Feb, [facility] [address] [address] Feb, Lung mass R91.8 [facility] [address] [phone] Feb, [facility] [address] [place] [id number] [place] [phone] Feb, Right upper lobe consolidation J18.1 ; Heart palpitations R00.2 and Cough R05 [place] [address] [place] [id number] [place] [phone] Mar, 2008 IMMUNIZATIONS No Known Immunizations SOCIAL HISTORY Never Assessed REASON FOR VISIT Establish Care , PT is needing a referal for a pulminary specialist-Saurabh QUIROZ PLAN OF CARE Activity Details Follow Up Will call after biopsy Reason: VITAL SIGNS Height 72 in 2017-02-25 Weight 196.4 lbs 2017-02-25 Temperature 98.7 degrees Fahrenheit 2017-02-25 Heart Rate 95 bpm 2017-02-25 Respiratory Rate 20 2017-02-25 Oximetry on room air:97 % 2017-02-25 BMI 26.63 kg/m2 2017-02-25 Blood pressure systolic 108 mmHg 2017-02-25 Blood pressure diastolic 70 mmHg 2017-02-25 MEDICATIONS Medication Instructions Dosage Frequency Start Date End Date Duration Status Doxycycline Hyclate 100 MG Orally every 12 hrs 1 capsule 12h 11 Feb, 2017 Feb, 10 days Active RESULTS No Results PROCEDURES Procedure Date Ordered Result Body Site MEASURE BLOOD OXYGEN LEVEL Feb 25, 2017 INSTRUCTIONS MEDICATIONS ADMINISTERED No Known Medications MEDICAL (GENERAL) HISTORY Type Description Date 

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
[2018-06-16 17:38] LABS: BASOPHILS # (AUTO) 0.1 10^3/uL (0.0-0.1); BASOPHILS % (AUTO) 1 % (0-10); EOSINOPHILS # (AUTO) 0.5 10^3/uL (0.0-0.3); EOSINOPHILS % (AUTO) 5 % (0-10); HEMATOCRIT 44 % (40-54); HEMOGLOBIN 14.9 G/DL (13.3-17.7); LYMPHOCYTES # (AUTO) 2.7 X 10^3 (1.0-4.0); LYMPHOCYTES % (AUTO) 28 % (12-44); MEAN CORPUSCULAR HEMOGLOBIN 30 PG (25-34); MEAN CORPUSCULAR HGB CONC 34 G/DL (32-36); MEAN CORPUSCULAR VOLUME 89 FL (80-99); MONOCYTES # (AUTO) 0.9 X 10^3 (0.0-1.0); MONOCYTES % (AUTO) 9 % (0-12); NEUTROPHILS # (AUTO) 5.4 X 10^3 (1.8-7.8); NEUTROPHILS % (AUTO) 56 % (42-75); PLATELET COUNT 239 10^3/uL (130-400); WHITE BLOOD COUNT 9.5 10^3/uL (4.3-11.0)
[2018-06-16 18:00] LABS: ALANINE AMINOTRANSFERASE 19 U/L (0-55); ALBUMIN 4.5 GM/DL (3.2-4.5); ALKALINE PHOSPHATASE 51 U/L (40-136); BILIRUBIN,TOTAL 0.4 MG/DL (0.1-1.0); BUN/CREATININE RATIO 13; CALCIUM 10.4 MG/DL (8.5-10.1); CARBON DIOXIDE 25 MMOL/L (21-32); CHLORIDE 103 MMOL/L (98-107); CREATININE SERUM 1.29 MG/DL (0.60-1.30); GFR ESTIMATED 56; GLUCOSE 98 MG/DL (70-105); POTASSIUM 3.9 MMOL/L (3.6-5.0); SODIUM 140 MMOL/L (135-145); TOTAL PROTEIN 7.3 GM/DL (6.4-8.2)
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
[2018-06-16] MEDS ORDERED: HOLD METFORMIN - RECEIVED CONTRAST 20 ML VIAL IV SCH (18:15)
[2018-06-16] MEDS ORDERED: IOHEXOL 350 MG/ML 100 ML (OMNIPAQUE 350) VIAL IV ONE (18:15)
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
[2018-06-16] MEDS ORDERED: APIX5TAB PO (18:32)
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
[2018-06-16] MEDS ORDERED: NS IV 1000 ML 1,000 ML ONE (19:19)
[2018-06-16] MEDS ORDERED: TETANUS,DIPTH,PERTUSS P/F (BOOSTRIX) 0.5 ML VIAL IM ONE (20:00)
[2018-06-16] MEDS ORDERED: HYDROcodone/APAP 5 MG/325 MG (LORTAB) TAB PO ONE (20:45)
[2018-06-16 21:18] VITALS: BP 104/75
--- NOTE | 2018-06-16 21:18 | NUR ---
EPIFANIO ROCIO admitted to room CU5-1, with an admitting diagnosis of RIB FRACTURE, C2 FRACTURE, on 06/16/18 from ED via , accompanied by .EPIFANIO CHAN introduced to surroundings, call light, bed controls, phone, TV, temperature control, lights, meal times, smoking policy, visitor policy, side rail policy, bathrooms and showers. Patient Rights given to patient in the handbook.EPIFANIO CHAN verbalizes understanding that [facility] is not responsible for the loss or damage to any personal effects or valuables that are kept in the patients posession during their hospitalization. The following Patient Care Plans were discussed with the : Discharge Planning, RIB FRACTURES],, and . EPIFANIO CHAN verbalizes understanding of Interdisciplinary Patient Education. Patient and/or family were informed about the Rapid Response Team and its purpose.
[2018-06-16 21:30] VITALS: BP 110/77
[2018-06-16 21:45] VITALS: BP 107/70
[2018-06-16 22:00] VITALS: BP 103/73
[2018-06-16] MEDS: NS IV 1000 ML 1,000 ML IV SCH (22:04)
[2018-06-16 23:00] VITALS: BP 103/89
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
[2018-06-16] MEDS: HYDROcodone/APAP 5 MG/325 MG (LORTAB) TAB PO PRN (23:40)
[2018-06-17] VITALS (12 sets, daily range): BP systolic 93–151; BP diastolic 69–103
--- NOTE | 2018-06-17 03:36 | NUR ---
PORT A CATH ACCESSED AT THIS TIME. PT TOLERATED WELL.
[2018-06-17 03:46] LABS: BASOPHILS % (AUTO) 0 % (0-10); EOSINOPHILS % (AUTO) 0 % (0-10); HEMATOCRIT 33 % (40-54); HEMOGLOBIN 10.7 G/DL (13.3-17.7); LYMPHOCYTES # (AUTO) 1.3 X 10^3 (1.0-4.0); LYMPHOCYTES % (AUTO) 11 % (12-44); MEAN CORPUSCULAR HEMOGLOBIN 30 PG (25-34); MEAN CORPUSCULAR HGB CONC 33 G/DL (32-36); MEAN CORPUSCULAR VOLUME 91 FL (80-99); MEAN PLATELET VOLUME 9.5 FL (7.4-10.4); MONOCYTES % (AUTO) 9 % (0-12); NEUTROPHILS # (AUTO) 8.7 X 10^3 (1.8-7.8); NEUTROPHILS % (AUTO) 79 % (42-75); PLATELET COUNT 215 10^3/uL (130-400); RED CELL DISTRIBUTION WIDTH 14.9 % (10.0-14.5)
[2018-06-17 04:09] LABS: BUN/CREATININE RATIO 19; CALCIUM 8.3 MG/DL (8.5-10.1); CARBON DIOXIDE 19 MMOL/L (21-32); CHLORIDE 105 MMOL/L (98-107); CREATININE SERUM 0.97 MG/DL (0.60-1.30); GFR ESTIMATED > 60; GLUCOSE 133 MG/DL (70-105); MAGNESIUM 1.8 MG/DL (1.8-2.4); PHOSPHORUS 3.2 MG/DL (2.3-4.7); SODIUM 135 MMOL/L (135-145)
[2018-06-17] MEDS: HYDROcodone/APAP 5 MG/325 MG (LORTAB) TAB PO PRN ×2 (04:11→08:35)
[2018-06-17] MEDS: NS IV 1000 ML 1,000 ML IV SCH (05:27)
[2018-06-17] MEDS: CEPHALEXIN 250 MG (KEFLEX) CAP PO SCH ×2 (08:34→12:44)
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
[2018-06-17] MEDS ORDERED: BISA5TAB49 PO (09:32)
[2018-06-17] MEDS ORDERED: OPDIVO IV (09:41)
[2018-06-17] MEDS ORDERED: ACHD5005 PO (12:39)
--- NOTE | 2018-06-17 12:40 | Discharge Inst-Surgical ---
Discharge Inst-Surgical Depart Medication/Instructions New, Converted or Re-Newed RX: RX Given to Pt/Family Patient Instructions Follow up Appt: Make appointment for 1 week. [phone] Instructions: No lifting greater than 20 pounds. No strenuous activity. May shower in 24 hours, no tub bath or soaking. Use incentive spirometer at home as directed. No Smoking Skin/Wound Care: keep abrasions clean and dry Symptoms to Report: Appetite Changes, Extremity Discoloration, Numbness/Tingling, Swelling Increased , Bleeding Excessive, Eyesight Changes, Pain Increased, Urine Color Change, Constipation(Persistent), Fever over 101 degree F, Pain/Pressure in chest, Urinating Difficulty, Cough Up/Vomit Blood, Heart Beat Irreg/Pounding, Pain/ Pressure in jaw, Cramps in feet or legs, Lightheadedness, Pain/Pressure in shoulder, Diarrhea(Persistent), Memory Changes Suddenly, Questions/Concerns, Weight gain consecutive days, Dizziness/Fainting, Nausea/Vomiting, Shortness of Breath, Weight gain over 2 pounds If questions or concerns contact your physician Or seek help at emergency department. Activity Driving Instructions: No Driving/Refer to Dr. Spann Discharge Diet: No Restrictions Diet After 24 Hours: Clear Liquid if Nauseous Comment: Restart Eliquis on Saturday. Skin/Wound Care Wound Care Comment: Use soft collar until you have seen Orthopedic surgeon and they tell you to take it off. Bathing Instructions: DENA Parr DO June 17, 2018 12:40
--- NOTE | 2018-06-17 12:44 | Progress Note ---
Subjective Time Seen by a Provider: 12:21 Subjective/Events-last exam Pt seen and examined, states his hip hurts, his right shoulder hurts and it hurts when he takes a deep breath. Tolerating diet. Hydrocodone helps the pain. Review of Systems General: No Chills Pulmonary: No Dyspnea, No Cough Cardiovascular: Chest Pain; No: Palpitations Gastrointestinal: No: Nausea, Vomiting, Abdominal Pain Musculoskeletal: shoulder pain Objective Exam Vital Signs Date Time Temp Pulse Resp B/P (MAP) Pulse Ox O2 Delivery O2 Flow Rate FiO2 06/17/18 11:24 109 16 151/96 (114) 94 Room Air 06/17/18 10:00 101 22 135/103 (114) 95 Room Air 06/17/18 09:00 96 26 145/100 (115) 95 Room Air 06/17/18 09:00 94 Room Air 06/17/18 08:00 97.2 88 25 126/79 (95) 94 Room Air 06/17/18 08:00 94 Room Air 06/17/18 07:00 85 15 126/79 (95) 95 Room Air 06/17/18 07:00 85 06/17/18 06:00 83 14 111/81 (91) 93 Room Air 06/17/18 05:04 87 16 93/69 (77) 90 Room Air 06/17/18 04:00 96 Room Air 06/17/18 04:00 96.9 06/17/18 04:00 91 20 103/77 (86) 94 Room Air 06/17/18 03:00 90 20 96/70 (79) 95 Room Air 06/17/18 02:00 95 21 95/75 (82) 95 Room Air 06/17/18 01:17 97 19 109/88 (95) 95 Room Air 06/17/18 01:00 93 16 94 Room Air 06/17/18 01:00 93 06/17/18 00:00 99 21 111/84 (93) 96 Room Air 06/17/18 00:00 97.9 06/17/18 00:00 96 Room Air 06/16/18 23:00 101 21 103/89 (94) 94 Room Air 06/16/18 22:00 109 14 103/73 (83) 92 Room Air 06/16/18 21:45 110 21 107/70 (82) 93 Room Air 06/16/18 21:30 92 Room Air 06/16/18 21:30 108 18 110/77 (88) 93 Room Air 06/16/18 21:19 107 06/16/18 21:18 97.1 107 20 104/75 (85) 92 Room Air 06/16/18 21:05 102 18 107/78 (88) 93 06/16/18 17:23 96.0 99 22 155/112 (126) 94 I & O 06/17/18 07:00 Intake Total 1540 ml Output Total 450 ml Balance 1090 ml Capillary Refill : Less Than 3 SecondsLess Than 3 Seconds General Appearance: No Apparent Distress, WD/WN, Thin HEENT: Pharynx Normal, Moist Mucous Membranes; No Pale Conjunctivae (L), No Pale Conjunctivae (R), No Scleral Icterus (L), No Scleral Icterus (R) Neck: Supple, Other (soft collar in place) Respiratory: No Accessory Muscle Use, No Respiratory Distress, Crackles (at bases), Decreased Breath Sounds (on right) Cardiovascular: No Edema; No No Murmur; Normal Peripheral Pulses, Tachycardia Gastrointestinal: normal bowel sounds, non tender Extremity: Normal Capillary Refill, Normal Inspection, Non Tender, No Calf Tenderness, Other (right hip, starting to bruise, appears same size as yesterday ) Neurologic/Psychiatric: Alert, Oriented x3, Normal Mood/Affect, utility accounts director II-XII Norm as Tested Skin: Normal Color, Warm/Dry, Other ( small abrasions on right and left hand, large deep abrasion on top of left foot near ankle) Results Lab Laboratory Tests 06/16/18 17:30: White Blood Count 9.5, Red Blood Count 4.99, Hemoglobin 14.9, Hematocrit 44, Mean Corpuscular Volume 89, Mean Corpuscular Hemoglobin 30, Mean Corpuscular Hemoglobin Concent 34, Red Cell Distribution Width 15.0H, Platelet Count 239, Mean Platelet Volume 9.0, Neutrophils (%) (Auto) 56, Lymphocytes (%) (Auto) 28, Monocytes (%) (Auto) 9, Eosinophils (%) (Auto) 5, Basophils (%) (Auto) 1, Neutrophils # (Auto) 5.4, Lymphocytes # (Auto) 2.7, Monocytes # (Auto) 0.9, Eosinophils # (Auto) 0.5H, Basophils # (Auto) 0.1, Sodium Level 140, Potassium Level 3.9, Chloride Level 103, Carbon Dioxide Level 25, Anion Gap 12, Blood Urea Nitrogen 17, Creatinine 1.29, Estimat Glomerular Filtration Rate 56, BUN/ Creatinine Ratio 13, Glucose Level 98, Calcium Level 10.4H, Corrected Calcium 10.0, Total Bilirubin 0.4, Aspartate Amino Transf (AST/SGOT) 24, Alanine Aminotransferase (ALT/SGPT) 19, Alkaline Phosphatase 51, Total Protein 7.3, Albumin 4.5, Serum Alcohol < 10 06/17/18 03:30: White Blood Count 11.0, Red Blood Count 3.60L, Hemoglobin 10.7#L, Hematocrit 33L , Mean Corpuscular Volume 91, Mean Corpuscular Hemoglobin 30, Mean Corpuscular Hemoglobin Concent 33, Red Cell Distribution Width 14.9H, Platelet Count 215, Mean Platelet Volume 9.5, Neutrophils (%) (Auto) 79H, Lymphocytes (%) (Auto) 11L , Monocytes (%) (Auto) 9, Eosinophils (%) (Auto) 0, Basophils (%) (Auto) 0, Neutrophils # (Auto) 8.7H, Lymphocytes # (Auto) 1.3, Monocytes # (Auto) 1.0, Eosinophils # (Auto) 0.0, Basophils # (Auto) 0.0, Sodium Level 135, Potassium Level 4.0, Chloride Level 105, Carbon Dioxide Level 19L, Anion Gap 11, Blood Urea Nitrogen 18, Creatinine 0.97, Estimat Glomerular Filtration Rate > 60, BUN/ Creatinine Ratio 19, Glucose Level 133H, Calcium Level 8.3L, Phosphorus Level 3.2, Magnesium Level 1.8 Assessment/Plan Assessment/Plan Assessment/Plan Trauma to head on Anticoagulation C 2 transverse process Fx Right rib fx 1 and 2 R hip hematoma Pt told to hold Eliquis until Saturday. Will give Rx for hydrocodone. He needs to follow up with Ortho and can see me in the office. Use IS and follow up with Oncology as well. All questions answered to his satisfaction. Clinical Quality Measures DVT/VTE Risk/Contraindication: Risk Factor Score Per Nursin RFS Level Per Nursing on Admit: 4+=Very High DENA TURPIN DO June 17, 2018 12:44
== END 2018-06-17 13:05 | disposition home or self-care (01) ==
LOC: EDUNIT# 17:22 → ER 17:23 → ICU 19:46
PROVIDERS: ADMIT Surgery; ATTEND Surgery
DX: S12.100A Unspecified displaced fracture of second cervical vertebra, initial encounter for closed fracture (principal); S22.41XA Multiple fractures of ribs, right side, initial encounter for closed fracture; S70.01XA Contusion of right hip, initial encounter; S09.90XA Unspecified injury of head, initial encounter; C34.11 Malignant neoplasm of upper lobe, right bronchus or lung; Z79.01 Long term (current) use of anticoagulants; Z87.891 Personal history of nicotine dependence; Z85.850 Personal history of malignant neoplasm of thyroid; V23.4XXA Motorcycle driver injured in collision with car, pick-up truck or van in traffic accident, initial encounter; Z23 Encounter for immunization
CPT/HCPCS: 36415; 70450; 71045; 71260; 72125; 72170; 74177; 80048; 80053; 80320; 83735; 84100; 85025; 85027; 87081; 90715; 93041